=== PATIENT | male | born 1980 | race Caucasian/White ===

== ENCOUNTER → 2023-10-11 15:31 | Outpatient (REF) | payer OTHER, SELFPAY | LOC: HWRAD 15:31 | PROVIDERS: ATTENDING PHYSICIAN Family Medicine | DX: J34.89 Other specified disorders of nose and nasal sinuses (principal); M25.512 Pain in left shoulder; Z00.00 Encounter for general adult medical examination without abnormal findings | CPT/HCPCS: 70486; 71046; 73030 ==

== ENCOUNTER 2025-07-25 11:55 | Emergency (ER) | payer OTHER, SELFPAY ==
[2025-07-25 11:58] VITALS: BP 156/89
--- NOTE | 2025-07-25 17:27 | ED.GENMED ---
History of Present Illness
General
Chief Complaint: DVT/Possible Blood Clot
Time Seen by Provider: 07/25/25 13:31
History of Present Illness
History of Present Illness:
see MDM
Phy Exam
Physical Exam
Physical Exam:
GENERAL: Alert , in no apparent distress, comfortable at rest
HEAD: NCAT
CV: 2+ DP PULSES B/L
NEUROLOGICAL: Alert and oriented, no focal neuro deficits, , 5/5 strength, sensation intact, ambulation slight limp right leg
SKIN: Warm and dry,
MUSCULOSKELETAL: mild STS left ankle with no significant tenderness, can range it well, no redness or warmth,
no tenderness at the base of the 5th metatarsal, no other foot tenderness
no knee/prox tib/fib tenderness, full painless ROM;
PSYCH: Normal and appropriate interaction.
Course
Orders/Labs/Results
Orders:
Orders
07/25/25 12:06
Periph Venous Lwr Ext Left US [US Periph Venous LOWER Ext LT] Urgent
Comment:
Reason For Exam: pain and swelling
07/25/25 14:04
Ankle, Right 3 view CR [CR Ankle - Right Min 3 Views *] Urgent
Comment:
Reason For Exam: righ tankle pain/swelling fluctuating
Ankle, left 3 view CR [CR Ankle - Left Min 3 Views ] Urgent
Comment:
Reason For Exam: left ankle pain/swelling
Foot, Left 3 View [CR Foot - Left Min 3 Views] Urgent
Comment:
Reason For Exam: left foot swelling
Foot, Right 3 View [CR Foot - Right Min 3 Views] Urgent
Comment:
Reason For Exam: right foot pain
Vital Signs
Initial and Last Documented VS:
Initial Vital Signs
Temp Pulse Resp BP Pulse Ox
37.2 C 94 20 156/89 100
07/25/25 11:58 07/25/25 11:58 07/25/25 11:58 07/25/25 11:58 07/25/25 11:58
Last Documented Vital Signs
Temp Pulse Resp BP Pulse Ox
37.2 C 94 20 156/89 100
07/25/25 11:58 07/25/25 11:58 07/25/25 11:58 07/25/25 11:58 07/25/25 11:58
MDM/Problems Addressed
Differential Diagnosis Includes:
see MDM
MDM/Problems Addressed:
Note:
CHIEF COMPLAINT(S)
Recurrent swelling of the ankle.
HISTORY OF PRESENT ILLNESS
The patient is a 45-year-old male with a history of elevated uric acid levels, presenting with recurrent swelling of the left ankle.
he has presumed out based on elevated uric acid levels checked randomly about 2 years ago
he was prescibed allopurinol but never really took it unilt february after a well visit
he was told again his uric acid was elevate dand to take it
he started it in march but in april had R ankle swleling an dpain
he went to and had xrays which were neg
was put in boot which he wore
but it wasn't until he had steroisd that it improved
then pt got swelling and pain in both ankles
he got another steroid pack which helped but after the last dose he started with pain/swellin again, specifically L ankle
he called pcp an dis due to see him in the office
he has been r/o for lyme but doesn't sound like he had rheum w/u
pcp wanted him to have b/l foot and ankle xrays and b/l LE US
he specificaly has worsep ain/swelling/stiffness in the L ankle and was instructed to come here
no fever, chills, redness, injry weakness
PAST MEDICAL AND SURGICAL HISTORY
Hypertension and elevated uric acid levels.
CHRONIC MEDICAL CONDITIONS SIGNIFICANTLY AFFECTING CARE
Hypertension managed with a combination pill containing amlodipine, hydrochlorothiazide, and olmesartan.
MEDICATIONS
- Allopurinol
- Amlodipine/hydrochlorothiazide/olmesartan (for hypertension)
REVIEW OF SYSTEMS
- Musculoskeletal: Recurrent swelling of the left ankle with occasional stiffness.
- No notable redness or systemic symptoms such as fever.
PHYSICAL EXAM
GENERAL: Alert , in no apparent distress, comfortable at rest
HEAD: NCAT
CV: 2+ DP PULSES B/L
NEUROLOGICAL: Alert and oriented, no focal neuro deficits, , 5/5 strength, sensation intact, ambulation slight limp right leg
SKIN: Warm and dry,
MUSCULOSKELETAL: Moderate swelling of the left ankle joint without any erythema or warmth, nontender, slightly stiff with range of motion but can dorsi and plantarflex, the calf is soft, full range of motion, neurovascularly intact
Mild limp
PSYCH: Normal and appropriate interaction.
- Nursing notes reviewed and vital signs reviewed.
PROBLEM LIST
Acute Problems:
- Recurrent ankle swelling likely secondary to hyperuricemia or other underlying cause.
Chronic Problems:
- Hypertension
- Hyperuricemia
PLAN
1. Perform ankle X-ray to reassess for any structural abnormalities.
2. Recommendation to consult with a power brake rebuilder for possible autoimmune causes.
3. Consider adjustment or cessation of allopurinol if it is implicated in symptom exacerbation, pending further evaluation.
4. Monitor blood pressure medications as swelling may be related to amlodipine use.
5. Follow-up with primary care physician or specialist for tailored management following further diagnostic results.
DIFFERENTIAL DIAGNOSIS
The Differential Diagnosis includes, in no particular order and is not limited to:
1. Gout
2. Pseudogout
3. Rheumatoid arthritis
4. Lyme disease
5. Deep vein thrombosis
6. Osteoarthritis
7. Infection (septic arthritis)
8. Lupus erythematosus
9. Traumatic injury
10. Drug-induced edema (from amlodipine)
CARE-UPDATE
07/25/25 - 15:14
X-ray results confirmed no fractures. A course of prednisone 50 mg daily for five days has been prescribed to manage inflammation, with no taper necessary post-treatment. Patient is advised to follow up with orthopedics and potentially a
power brake rebuilder for further evaluation of possible inflammatory arthritis, including rheumatoid and uric acid levels, as clinical assessment did not indicate septic arthritis due to lack of redness or fever. Discussion with patient�s previous doctor
mentioned, but emphasis on aspiration for accurate arthritis type identification was noted. Patient is scheduled for an orthopedic appointment next week where additional blood work may be conducted.
*Pulse Oximetry
SaO2: 100
Oxygen Mode of Delivery: Room air
Patient hypoxic: no (100)
*Critical Care Note
Total Time (30-74mins, 75-104mins- exclusive of procedures): Not Applicable
ED Attending Note
-
Portions of this chart may have been created with voice recognition software.� Occasional wrong word or��sound alike� substitutions may have occurred due to the inherent limitations of voice recognition software.
Discharge Plan
Departure
Patient Disposition: Home (Routine Discharge)
Date of Disposition: 07/25/25
Time of Disposition: 15:07
Patient with high blood pressure during this ER visit?: No
Condition: Fair
Discharge Problem:
Arthritis
Instructions: Swollen Joints (DC)
Prescriptions:
New
prednisone 50 mg tablet
50 mg PO DAILY Qty: 5 0RF
Referrals:
Isak Swenson DO [Family Provider, Family Practice]
Activity Restrictions/Additional Instructions:
You can try 50 mg of prednisone once a day for 5 days to help with your swelling. You should see an orthopedist. Your ultrasound was negative for clot and there is no obvious findings on your x-rays. Please follow-up with your doctor, he may want
to refer you to rheumatology. Return for any concern
Interventions
Interventions:
*General Assessment Last Done: 07/25/25 11:58
*Neglect/Abuse Screening Last Done: 07/25/25 11:58
*ED COVID-19 Vaccine History Last Done: 07/25/25 15:20
*ED Influenza Vaccine History Last Done: 07/25/25 15:20
[facility] Fall Risk Assessment Tool Last Done: 07/25/25 15:20
*Risk Screen - Suicide (C-SSRS) Last Done: 07/25/25 11:56
*Nursing Disposition Last Done: 07/25/25 15:20
ED- Cardiac Assessment Last Done: 07/25/25 15:20
ED- Pulmonary Assessment Last Done: 07/25/25 15:20
ED-Peripheral Vascular Assessment Last Done: 07/25/25 15:21
ED-Skin Assessment Last Done: 07/25/25 15:20
Discharge Date and Time
Discharge Date/Time: 07/25/25 15:21
Print Language: [place]
== END 2025-07-25 15:21 | disposition home or self-care (01) ==
LOC: EMR 11:55
PROVIDERS: EMERGENCY PHYSICIAN Emergency Medicine; FAMILY PHYSICIAN Family Medicine
DX: M19.90 Unspecified osteoarthritis, unspecified site (principal); R60.0 Localized edema; M79.671 Pain in right foot; I10 Essential (primary) hypertension
CPT/HCPCS: 99284; 73610; 73630; 93971